=== PATIENT | male | born 1965 | race Caucasian/White ===

== ENCOUNTER → 2021-02-20 | Outpatient (CLI) | payer OTHER ==
[~2021-02-20] MED LIST: ISOVUE-300 61% 50ML VIAL As Ordered ONE; PROHANCE 279.3MG/ML 5ML VIAL As Ordered ONE
--- NOTE | 2021-02-20 08:39 | REP ---
INDICATION: STRAIN OF MUSC/TEND OF ROTATOR CUFF. COMPARISON: None TECHNIQUE: The procedure was performed by KVNG Duque, under the direct supervision of Dr. Healy. The benefits and risks of the procedure were explained to the patient, and an informed consent was obtained. Directly prior to the start of the procedure, a formal time-out was completed in the procedure room. The left glenohumeral joint space was localized using fluoroscopic guidance. The skin was prepped and draped in a sterile fashion. Approximately 5 mL of 1% Lidocaine 10 mg/ml was used as a local anesthetic. Using fluoroscopic guidance, a #22 gauge spinal needle was inserted and advanced into the left glenohumeral joint space. Approximately 1 mL of Isovue 300 was injected to verify placement. Twelve mL of a solution containing 20 mL of sterile saline and 0.15 mL of ProHance was injected into the joint space. The needle was removed and the patient was taken to MRI for post procedural imaging. FINDINGS: The patient tolerated the procedure well and there were no immediate complications. IMPRESSION: Fluoroscopically guided MRI arthrogram injection. 0.1 minutes of fluoroscopy time was utilized for this procedure. Some fluoroscopic images are performed with last image hold technology. These images require no additional radiation. <Electronically signed by Kera Dickey > 02/20/21 0822 <Electronically signed by Saul Healy > 02/20/21 [id number]
--- NOTE | 2021-02-20 09:51 | REP ---
INDICATION: STRAIN OF MUSC/TEND OF ROTATOR CUFF. COMPARISON: None. TECHNIQUE: The injection procedure is performed and dictated separately. Pre and post intra-articular gadolinium enhanced saline injected imaging is acquired. Imaging planes include axial, oblique coronal, oblique sagittal and ABER projection images. T1 and T2-weighted scans are included with and without fat saturation. FINDINGS: Pre injection imaging demonstrates normal alignment of the glenohumeral and acromioclavicular joints. There is osteoarthritic hypertrophy at the acromioclavicular joint with subcortical cyst formation on both sides of the AC articulation. There is a small to moderate subacromial subdeltoid bursal effusion. No glenohumeral joint effusion is seen. Infraspinatus, subscapularis, and biceps tendons are intact. There is increased signal intensity swelling of the distal supraspinatus tendon consistent with advanced tendinitis tendinosis. Mild inferolateral spurring of the acromion process is seen adjacent to this. There is no full-thickness supraspinatus a tear. Periarticular skeletal muscles normal in, contour and signal intensity. No juxta-articular cyst or mass is observed. There is mild subcortical cyst formation in the humeral head. On post injection images there is good filling and enhancement of the glenohumeral articulation. No loose body is seen. There is injected contrast enhancement extending fairly extensively into the substance of the supraspinatus tendon in multiple locations consistent with multiple partial-thickness synovial surface cuff tears. The subacromial subdeltoid bursa does contain contrast enhanced fluid as well indicating a complete tear. This is felt to be at the distal insertion of the supraspinatus tendon.. The superior labrum appears intact. ABER images show no evidence of anterior labral tear. 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 There is evidence of a complete tear at the distal insertion of the supraspinatus. 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 <Electronically signed by Saul Healy > 02/20/21 [id number]
== END ==
LOC: M RADPRO 06:31
PROVIDERS: ATTEND Physician Assistant Surgical
DX: R93.7 Abnormal findings on diagnostic imaging of other parts of musculoskeletal system (principal); S46.012D Strain of muscle(s) and tendon(s) of the rotator cuff of left shoulder, subsequent encounter
CPT/HCPCS: 23350; 73223; 77002; A9576; Q9967

== ENCOUNTER → 2023-01-19 | Outpatient (CLI) | payer BC | LOC: M SLEEP HO 11:43 | PROVIDERS: ATTEND Nurse Practitioner Family | DX: R40.0 Somnolence (principal) ==